=== PATIENT | female | born 1970 | race Caucasian/White ===

== ENCOUNTER 2017-04-15 10:14 | Emergency (ER) | payer BC, OTHER ==
[2017-04-15 10:22] VITALS: BP 135/81
--- NOTE | 2017-04-15 10:37 | UC ---
Respiratory Complaint HPI - HPI Summary HPI Summary: 46 year old female with sinus pressure for 2 weeks. Over the past 3-4 days developed worsened cough, sore throat and fatigue. No SOB. No CP. - History of Current Complaint Chief Complaint: UCRespiratory Stated Complaint: COUGH Time Seen by Provider: 04/15/17 10:27 Hx Obtained From: Patient, Family/General Supervisor Hx Last Menstrual Period: UTERINE ABLATION 2012 Onset/Duration: Gradual Onset Timing: Constant Severity Initially: Mild Severity Currently: Moderate Character: Cough: Nonproductive Associated Signs And Symptoms: Positive: Nasal Congestion, Sinus Discomfort - Allergies/Home Medications Allergies/Adverse Reactions: Allergies Allergy/AdvReac Type Severity Reaction Status Date / Time Prednisone Allergy See Comment Verified 04/15/17 10:18 PMH/Surg Hx/FS Hx/Imm Hx Previously Healthy: Yes Psychological History: Anxiety, Depression - Surgical History Surgical History: Yes Surgery Procedure, Year, and Place: ablasion, hernia, TUBAL LIGATION - Family History Known Family History: Positive: Hypertension, Diabetes - Social History Occupation: Employed Full-time Alcohol Use: Rare Substance Use Type: None Smoking Status (MU): Never Smoked Tobacco - Immunization History Most Recent Influenza Vaccination: JAN 1015 Review of Systems Constitutional: Fever, Chills, Fatigue ENT: Sore Throat, Ear Ache, Nasal Discharge, Sinus Congestion, Sinus Pain/ Tenderness Respiratory: Cough Is Patient Immunocompromised?: No All Other Systems Reviewed And Are Negative: Yes Physical Exam Triage Information Reviewed: Yes Appearance: Well-Appearing, No Pain Distress, Well-Nourished Vital Signs: Initial Vital Signs Temp 98.9 F 04/15/17 10:20 Pulse 97 04/15/17 10:20 Resp 14 04/15/17 10:20 BP 135/81 04/15/17 10:20 Pulse Ox 98 04/15/17 10:20 Vital Signs Reviewed: Yes Eye Exam: Normal ENT Exam: Normal ENT: Positive: Sinus tenderness Dental Exam: Normal Neck exam: Normal Neck: Positive: 1 Respiratory Exam: Normal Cardiovascular Exam: Normal Musculoskeletal Exam: Normal Neurological Exam: Normal Psychological Exam: Normal Skin Exam: Normal UC Diagnostic Evaluation - Laboratory O2 Sat by Pulse Oximetry: 98 Respiratory Course/Dx - Differential Dx/Diagnosis Differential Diagnosis/HQI/PQRI: Bronchitis, Influenza, Lower Resp Infection, Sinusitis Provider Diagnoses: Sinusitis Discharge - Discharge Plan Condition: Good Disposition: HOME Prescriptions: Amoxicillin/Clavulanate TAB* [Augmentin TAB 875*] 875 mg PO BID #20 tab Benzonatate [Benzonatate 200 MG] 200 mg PO TID #20 cap Fluconazole 150 MG (NF) [Diflucan 150 mg (NF)] 150 mg PO ONCE #1 tab Patient Education Materials: Sinusitis (ED) Referrals: Kayla Dimas MD [Primary Care Provider] - 3 Days Additional Instructions: You had a negative flu and strep test today
== END 2017-04-15 11:00 | disposition home or self-care (01) ==
LOC: UCEAST 10:14
DX: J32.9 Chronic sinusitis, unspecified (principal); Z88.8 Allergy status to other drugs, medicaments and biological substances
CPT/HCPCS: 87502; 87651; 99211; G0463

== ENCOUNTER 2017-04-27 10:12 | Emergency (ER) | payer BC ==
--- OUTSIDE RECORDS SUMMARY | 2017-04-27 10:25 | XMS REPORT ---
:1970 External Reference #:[id number] Author Organization [facility] Address [address] [address] Phone [phone] Care Team Providers Name Role Phone Kayla Dimas MD Primary Care Physician Unavailable Payers Type Date Identification Numbers Payment Provider Subscriber Commercial Expires: Policy Number: Lifetime Benefit Ester Ozuna 2016 [id number] Solution PayID: [id number] [address] [place] [address] Medigap Part B Expires: 2016 Policy Number: [facility] Aniam[facility] [id number] Group Number: [id number] [address] PayID: [id number] [place] [address] Medigap Part B Effective: 2016 Policy Number: [facility] Ester Ozuna [id number] PayID: [id number] [address] [place] [address] Problems Date Description Provider Status Onset: 07/05/2013 Dizziness and giddiness Carito Graham M.D. 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[employer] Cigarette Use Never Smoked Cigarettes Cigars Never Smoked Cigars Pipe Never Smoked A Pipe Smokeless Tobacco Never Used Smokeless Tobacco ETOH Use Rarely consumes alcohol Smoking Patient has never smoked Recreational Drug Use Never Used Drugs Daily Caffeine Does Not Consume Caffeine Daily Caffeine Consumes on average 2 cups of regular coffee per day Exercise Type/Frequency Does not exercise Allergies, Adverse Reactions, Alerts Date Description Reaction Status Severity Comments 04/24/2014 Environmental active 10/14/2016 Prednisone active rash 09/15/2009 NKDA inactive Medications Medication Date Status Form Strength Qnty SIG Indications Ordering Provider Weekly Allergy 04/23 Active on hold Unknown Shots Qmonth Clonazepam 09/05 Active Tablets 1mg 45tab 1 tab by Kelly s mouth MD Britni every night, 1/2 tab once as needed during day Fluoxetine HCL Active Capsules 20mg 30cap 1 po qd s Montelukast Active Tablets 10mg 1 by mouth Unknown every day Xyzal Active Tablets 5mg 1 by mouth Unknown every day Spironolactone Active Tablets 100mg one tab by Unknown mouth daily Hydrochlorothiazi 04/15 Hx Tablets 25mg 60tab 1/2 - 1 H81.93 Carito Amanda s tab by Hannah Graham.Boogie 10/11 2-3x/ as directed. Vitamin D 04/23 Hx Capsules 1000Unit 60cap 1 po qd s (winter - 10/10 only) Spironolactone 04/23 Hx Tablets 150mg 60tab take 1 s tablet by - mouth once 10/11 a day /2016 Qnasl 04/23 Hx Aerosol 80mcg/Act 8.700 2 gm inhalation - s in each 04/14 nostril once daily Clonazepam Odt 06/21 Hx Tablets 0.5mg 180ta 1-2 tabs Carito Amanda Dispers bs by mouth Gladys, - 2-3 x per M.DRaul 09/05 day directed Valium 02/16 Hx Tablets 5mg 60tab 1 po bid Jeff Hannah Loco M.D. 06/21 Diuretic Does 02/16 Hx Jeff Not Know Name Hannah Mccartney M.D. 06/21 Medrol Dosepak 01/26 Hx Tablets 4mg 1pack take as Jeff Hannah Vidal for onset M.DRaul 02/16 of vertigo Rhinocort Aqua 00/00 Hx Unknown /0000 - 06/21 Nisa 00/ Hx Unknown /0000 - 06/21 Multivitamins 00/ Hx Unknown /0000 - 06/21 Amoxicillin 00 Hx Capsules 500mg 40cap 2 bid for Unknown /0000 s 10 days - 02/16 Scopolamine Hx 1.5mg 10uni topical Unknown Transdermal /0000 Patch ts q3d prn - 06/21 Nasonex Hx Suspension 50mcg/Act 1unit 2 sprays Unknown /0000 s to each - nostril 01/01 once daily /2013 Zolpidem Tartrate Hx Tablets 5mg 30tab 1 tab po Unknown /0000 s at bedtime - 07/05 Cephalexin Hx Capsules 250mg 21cap 1 tab po Unknown /0000 s daily - 09/05 Keflex Hx Capsules 250mg 30cap 1 tab po Unknown /0000 s every 12 - hours 01/01 Ferrous Sulfate Hx Tablets 325(65Fe) 30tab 1 by mouth Unknown /0000 mg s bid - 09/17 Levocetirizine Hx Tablets 5mg 90tab 1 by mouth Unknown Dihydrochloride /0000 s every day - 10/10 Spironolactone 00 Hx Tablets 100mg 120ta 1 by mouth Unknown /0000 bs every day - 04/23 Flonase Allergy Hx Suspension 50mcg/Act spray 2 Unknown Relief /0000 spray in - each 10/11tr daily Vital Signs Date Vital Result Comment 04/17/2017 Height 67 inches 5'7" Weight 194.38 lb Heart Rate 83 /min BP Systolic Sitting 120 mmHg BP Diastolic Sitting 76 mmHg Respiratory Rate 18 /min O2 % BldC Oximetry 97 % BMI (Body Mass Index) 30.4 kg/m2 10/14/2016 Height 67 inches 5'7" Weight 185.00 lb Heart Rate 75 /min BP Systolic 116 mmHg BP Diastolic 66 mmHg Respiratory Rate 16 /min O2 % BldC Oximetry 98 % Ra BMI (Body Mass Index) 29.0 kg/m2 04/15/2016 Heart Rate 62 /min BP Systolic Sitting 124 mmHg BP Diastolic Sitting 98 mmHg Respiratory Rate 20 /min Pain Level 0 O2 % BldC Oximetry 98 % 10/09/2015 Height 67 inches 5'7" Weight 170.00 lb Heart Rate 64 /min BP Systolic Sitting 112 mmHg BP Diastolic Sitting 80 mmHg Respiratory Rate 14 /min BMI (Body Mass Index) 26.6 kg/m2 04/16/2015 Height 67 inches 5'7" Weight 180.00 lb Heart Rate 56 /min BP Systolic Sitting 120 mmHg BP Diastolic Sitting 86 mmHg Respiratory Rate 14 /min BMI (Body Mass Index) 28.2 kg/m2 09/18/2014 Height 67 inches 5'7" Weight 172.00 lb Heart Rate 72 /min BP Systolic Sitting 136 mmHg BP Diastolic Sitting 76 mmHg Respiratory Rate 16 /min BMI (Body Mass Index) 26.9 kg/m2 07/31/2014 Height 67 inches 5'7" Weight 170.00 lb Heart Rate 82 /min BP Systolic Sitting 120 mmHg BP Diastolic Sitting 60 mmHg O2 % BldC Oximetry 98 % BMI (Body Mass Index) 26.6 kg/m2 04/24/2014 Height 67 inches 5'7" Weight 170.00 lb Heart Rate 72 /min BP Systolic Sitting 132 mmHg BP Diastolic Sitting 64 mmHg Respiratory Rate 18 /min Body Temperature 97.7 F O2 % BldC Oximetry 98 % BMI (Body Mass Index) 26.6 kg/m2 Neck Circumference in inches 13.75 01/07/2014 Height 67 inches 5'7" Weight 172.00 lb Heart Rate 72 /min BP Systolic Sitting 114 mmHg BP Diastolic Sitting 80 mmHg Respiratory Rate 12 /min BMI (Body Mass Index) 26.9 kg/m2 07/05/2013 Height 67 inches 5'7" Weight 160.00 lb Heart Rate 67 /min BP Systolic Sitting 120 mmHg BP Diastolic Sitting 60 mmHg Respiratory Rate 16 /min BMI (Body Mass Index) 25.1 kg/m2 09/05/2012 Weight 165.00 lb Heart Rate 68 /min BP Systolic 118 mmHg BP Diastolic 70 mmHg Respiratory Rate 12 /min 06/21/2012 Heart Rate 75 /min BP Systolic Sitting 122 mmHg BP Diastolic Sitting 78 mmHg Respiratory Rate 16 /min 09/15/2009 Heart Rate 78 /min BP Systolic Sitting 122 mmHg BP Diastolic Sitting 76 mmHg Results Description No Information Procedures Date CPT Code Description Status 07/08/2014 02381 Polysomnography Sleep Staging 4+ Parameters Completed 04/24/2012 22710 Nerve Conduction 07-08 Studies Completed Encounters Type Date Location Provider CPT E/M Dx Office Visit 04/17/2017 11:15a Moses/Jacqui Graham, [id number] R42 [facility]rolog[facility] Serv Of Cell Inspector M.D. R20.2 Office Visit 10/14/2016 11:45a Mare Graham, 88379 H81.93 Neurologic Serv Of Cell Inspector M.D. H90.5 Office Visit 04/15/2016 10:45a Moses/Jacqui Graham, 42485 H81.93 Neurologic Serv Of Cell Inspector M.D. Office Visit 10/09/2015 10:00a Moses/Jacqui Graham, 01657 H81.93 Neurologic Serv Of Cell Inspector M.D. Office Visit 04/16/2015 1:00p Jacqui Graham, 01300 H81.90 Services Of Cell Inspector M.D. H81.93 Office Visit 09/18/2014 11:30a Jacqui Graham, 66243 780.4 Services Of Cell Inspector M.D. Office Visit 07/31/2014 3:30p [place] [address] 780.57 Services Of Cell Inspector Office Visit 04/24/2014 11:00a [place] [address] 780.59 Services Of Cell Inspector Office Visit 01/07/2014 11:45a [facility] Carito Graham, 74731 389.10 Services Of Cell Inspector M.D. 386.9 Office Visit 07/05/2013 8:45a Jacqui Graham, 66225 780.4 Services Of Cell Inspector M.D. Office Visit 01/04/2013 12:00p Jacqui Graham, 40998 386.8 Services Of Cell Inspector M.D. 782.0 Office Visit 09/05/2012 12:00p Jacqui Graham, 72008 782.0 Services Of Cell Inspector M.D. 780.4 Office Visit 06/21/2012 11:15a Jacqui Graham, 82655 782.0 Services Of Cell Inspector M.D. 780.4 Office Visit 04/24/2012 2:30p Jacqui Graham 33146 782.0 Services Of [facility] Marie.Boogie Office Visit 02/15/2012 10:00a [facility] Carito Graham, 35412 780.4 Services [facility] Danelle 782.0 Office Visit 02/16/2010 3:15p E[facility] Services Of Jeff Mccartney M.D. 85243 386.9 [facility] [place] 389.10 Office Visit 01/26/2010 2:30p [facility] Of Jeff Mccartney M.D. 58861 386.9 [facility] [place] Office Visit 01/18/2010 10:45a ENT Services Of Leonidpravin Garner, 22517 386.[address] [facility].Boogie Office Visit 09/15/2009 3:00p [facility] Of Jeff Mccartney M.D. 82461 386.11 [facility] [place] Plan of Care Future Appointment(s):10/16/2017 11:15 am - Carito Graham M.D. at [place]/ [facility]04/17/2017 - Carito Graham M.D.R42 Dizziness and giddinessRecommendations:stay on klonopin 1 mg as you are doing. call if increased symptoms/signs.R20.2 Paresthesia of skinFollow up:6 MONTHSRecommendations:try neck/thoracic outlet exercises. call if increased symptoms....? repeat NCVs.
[2017-04-27 11:44] VITALS: BP 121/80
[2017-04-27] MEDS ORDERED: Albuterol/Ipratropium NEB.SOL* Albuterol 2.5 MG/Ipratropium 0.5 MG 3 ML INH ONE (12:07)
--- NOTE | 2017-04-27 12:08 | UC ---
FLU HPI - HPI Summary HPI Summary: Pt presents with a cough, body aches, and fever. She tells me that she and her were diagnosed with the flu 4 days ago by her PCP. Since that time she feels that she is getting worse - worsening body aches and increasing cough that is not productive, but her chest feels congested. She is still having a fever, but taking tylenol and ibuprofen is helping. She is currently taking Tamiflu and is on day #4. Does feel SOB at times, especially when active or with excessive talking. Denies chest pain, abdominal pain, n/v/d/c, or dysuria. - History of Current Complaint Chief Complaint: UCRespiratory Stated Complaint: COUGH, SORE THROAT Time Seen by Provider: 04/27/17 12:02 Hx Obtained From: Patient Hx Last Menstrual Period: none- tubes tied Onset/Duration: Gradual Onset Severity Currently: Moderate Severity Initially: Moderate Pain Intensity: 7 Pain Scale Used: 0-10 Numeric Associated Signs & Symptoms: Positive: Fever - Allergy/Home Medications Allergies/Adverse Reactions: Allergies Allergy/AdvReac Type Severity Reaction Status Date / Time Prednisone Allergy See Comment Verified 04/27/17 11:38 Home Medications: Home Medications Oseltamivir Phosphate [Tamiflu] 75 mg PO BID 04/27/17 [History Confirmed ] PMH/Surg Hx/FS Hx/Imm Hx Psychological History: Anxiety, Depression - Surgical History Surgical History: Yes Surgery Procedure, Year, and Place: ablasion, hernia, TUBAL LIGATION - Family History Known Family History: Positive: Hypertension, Diabetes - Social History Occupation: Employed Full-time Lives: With Family Alcohol Use: Rare Substance Use Type: None Smoking Status (MU): Never Smoked Tobacco - Immunization History Most Recent Influenza Vaccination: JAN 1015 Review of Systems Constitutional: Fever, Fatigue, Other - Body aches Skin: Negative Eyes: Negative ENT: Nasal Discharge, Sinus Congestion, Sinus Pain/Tenderness Respiratory: Shortness Of Breath, Cough Cardiovascular: Negative Gastrointestinal: Negative Neurovascular: Negative Neurological: Negative Psychological: Negative All Other Systems Reviewed And Are Negative: Yes Physical Exam Triage Information Reviewed: Yes Appearance: No Pain Distress, Well-Nourished, Ill-Appearing Vital Signs: Initial Vital Signs Temp 98.9 F 04/27/17 11:39 Pulse 79 04/27/17 11:39 Resp 18 04/27/17 11:39 BP 121/80 04/27/17 11:39 Pulse Ox 97 04/27/17 11:39 Vital Signs Reviewed: Yes Eyes: Positive: Conjunctiva Clear. Negative: Conjunctiva Inflamed, Discharge ENT: Positive: Hearing grossly normal, Pharynx normal, TMs normal, Uvula midline. Negative: Pharyngeal erythema, Nasal congestion, Nasal drainage, TM bulging, TM dull, TM red, Tonsillar swelling, Tonsillar exudate, Hoarse voice, Sinus tenderness Neck: Positive: Supple, Other: - Anterior lymphadenopathy with mild TTP.. Negative: Nuchal Rigidity Respiratory: Positive: Chest non-tender, No respiratory distress, No accessory muscle use, Decreased breath sounds - Throughout, Wheezing - Moderate throughout Cardiovascular: Positive: RRR, No Murmur, Pulses Normal Abdomen Description: Positive: Nontender, No Organomegaly, Soft. Negative: CVA Tenderness (R), CVA Tenderness (L), Distended, Guarding Bowel Sounds: Positive: Present Neurological: Positive: Alert, Fatigued Psychological: Positive: Age Appropriate Behavior Skin: Negative: rashes Re-Evaluation - Re-Evaluation First Eval Re-Evaluation Time: 13:08 Change: Improved Comment: Scant wheezing. Much improved overall. Pt subjectively feels that it is easier to breathe. Flu Course/Dx - Course Course Of Treatment: CXR: IMPRESSION: SMALL RIGHT PLEURAL EFFUSION. Wheezing much improved after duoneb. I will treat her pleural effusion as having a bacterial cause such as PNA and treat with Levaquin. F/u with PCP early next week - Differential Dx/Diagnosis Provider Diagnoses: Small right pleural effusion. Influenza. Cough. Body aches Discharge - Discharge Plan Condition: Stable Disposition: HOME Prescriptions: Levofloxacin TAB* [Levaquin TAB*] 750 mg PO DAILY #5 tab Patient Education Materials: Pleural Effusion (ED) Referrals: Kayla Dimas MD [Primary Care Provider] - Additional Instructions: If you develop a fever, shortness of breath, chest pain, new or worsening symptoms - please call your PCP or go to the ED. 1) Please schedule a follow up appointment with your PCP for Monday or Monday next week for recheck of your SMALL RIGHT PLEURAL EFFUSION.
--- NOTE | 2017-04-27 12:43 | RAD ---
INDICATION: Cough. COMPARISON: There are no prior studies available for comparison. TECHNIQUE: Dual-energy PA and lateral views of the chest were obtained. FINDINGS: The heart is within normal limits in size. Mediastinal and hilar contours appear within normal limits. The lungs are hyperinflated and clear. There is a small right pleural effusion. IMPRESSION: SMALL RIGHT PLEURAL EFFUSION.
== END 2017-04-27 13:20 | disposition home or self-care (01) ==
LOC: UCEAST 10:12
DX: J11.1 Influenza due to unidentified influenza virus with other respiratory manifestations (principal); J91.8 Pleural effusion in other conditions classified elsewhere; Z88.8 Allergy status to other drugs, medicaments and biological substances
CPT/HCPCS: 71046; 99212; A9270-GY; G0463

== ENCOUNTER 2018-05-17 07:39 | Emergency (ER) | payer BC ==
[2018-05-17 07:58] VITALS: BP 130/75
[2018-05-17] MEDS ORDERED: Ondansetron ODT TAB* 4 MG PO ONE (08:09)
--- NOTE | 2018-05-17 08:21 | UC ---
FLU HPI - HPI Summary HPI Summary: 47-year-old woman comes in with 4 days of fever chills body aches. Taking over- the-counter medicines which to help with symptoms some. Is also slightly nauseous. She has a sore throat it's worse with a cough. States the sore throat is mild otherwise she is not worried about strep throat. No chest congestion or shortness of breath. - History of Current Complaint Chief Complaint: UCGeneralIllness Stated Complaint: FEVER COUGH SORE THROAT NAUSEA Time Seen by Provider: 05/17/18 08:02 Hx Last Menstrual Period: none- tubes tied Pain Intensity: 7 - Allergy/Home Medications Allergies/Adverse Reactions: Allergies Allergy/AdvReac Type Severity Reaction Status Date / Time prednisone Allergy See Comment Verified 05/17/18 07:48 Home Medications: Home Medications Ibuprofen TAB* [Motrin TAB* 400 MG] 400 mg PO ONCE 05/17/18 [History Confirmed 05/17/18] Spironolactone TAB* [Aldactone TAB*] 100 mg PO DAILY 05/17/18 [History Confirmed 05/17/18] PMH/Surg Hx/FS Hx/Imm Hx Previously Healthy: Yes Cardiovascular History: Hypertension - Surgical History Surgical History: Yes Surgery Procedure, Year, and Place: ablasion, umbilical hernia, TUBAL LIGATION, hysterectomy 2017 - Family History Known Family History: Positive: Hypertension, Diabetes - Social History Alcohol Use: Occasionally Substance Use Type: None Smoking Status (MU): Never Smoked Tobacco - Immunization History Most Recent Influenza Vaccination: JAN 1015 Review of Systems All Other Systems Reviewed And Are Negative: Yes Constitutional: Positive: Fever, Chills Skin: Positive: Negative Eyes: Positive: Negative ENT: Positive: Sore Throat, Nasal Discharge, Sinus Congestion Respiratory: Positive: Cough Cardiovascular: Positive: Negative Gastrointestinal: Positive: Nausea Motor: Positive: Negative Neurovascular: Positive: Negative Musculoskeletal: Positive: Myalgia Neurological: Positive: Negative Psychological: Positive: Negative Is Patient Immunocompromised?: No Physical Exam Triage Information Reviewed: Yes Appearance: No Pain Distress, Well-Nourished, Ill-Appearing - mild Vital Signs: Initial Vital Signs Temp 97.4 F 05/17/18 07:52 Pulse 110 05/17/18 07:52 Resp 20 05/17/18 07:52 BP 130/75 05/17/18 07:52 Pulse Ox 95 05/17/18 07:52 Vital Signs Reviewed: Yes Eye Exam: Normal Eyes: Positive: Conjunctiva Clear ENT: Positive: Pharyngeal erythema, Nasal congestion, Nasal drainage, TMs normal Neck exam: Normal Neck: Positive: Supple Respiratory: Positive: Lungs clear, Normal breath sounds, No respiratory distress Cardiovascular: Positive: Tachycardia Musculoskeletal Exam: Normal Musculoskeletal: Positive: Strength Intact, ROM Intact Neurological Exam: Normal Neurological: Positive: Alert, Muscle Tone Normal Psychological Exam: Normal Psychological: Positive: Normal Response To Family, Age Appropriate Behavior Flu Course/Dx - Course Course Of Treatment: We discussed treatment of influenza we discussed treatment of influenza at this time the patient prefers to be on Tamiflu. - Differential Dx/Diagnosis Provider Diagnosis: Influenza Discharge - Sign-Out/Discharge Documenting (check all that apply): Patient Departure All imaging exams completed and their final reports reviewed: No Studies - Discharge Plan Condition: Stable Disposition: HOME Prescriptions: Benzonatate CAP* [Tessalon 100 MG CAP*] 100 mg PO TID PRN #20 cap PRN Reason: Cough Ondansetron ODT TAB* [Zofran 4 MG Odt TAB*] 4 mg PO Q6H PRN #15 tab.odt PRN Reason: Nausea Oseltamivir CAP* [Tamiflu CAP*] 75 mg PO BID #10 cap Patient Education Materials: Influenza (ED) Referrals: Kayla Dimas MD [Primary Care Provider] - Additional Instructions: FOLLOW UP WITH YOUR DOCTOR IF NOT COMPLETELY IMPROVED. GET RECHECKED FOR ANY WORSENING OF YOUR CONDITION OR QUESTIONS OR CONCERNS. - Billing Disposition and Condition Condition: STABLE Disposition: Home
[2018-05-17 08:29] LABS: Influenza A Molecular POSITIVE (Negative)
== END 2018-05-17 09:48 | disposition home or self-care (01) ==
LOC: UCEAST 07:39
DX: J11.1 Influenza due to unidentified influenza virus with other respiratory manifestations (principal); I10 Essential (primary) hypertension; Z88.8 Allergy status to other drugs, medicaments and biological substances; Z79.899 Other long term (current) drug therapy
CPT/HCPCS: 99212; A9270-GY; G0463

== ENCOUNTER 2018-07-08 07:07 | Emergency (ER) | payer BC ==
[2018-07-08 07:26] VITALS: BP 124/82
--- NOTE | 2018-07-08 07:37 | UC ---
Throat Pain/Nasal [place] HPI - HPI Summary HPI Summary: [address] AND FATIGUE. HAS SUBJECTIVE FEVER, PND AND MILD COUGH. YESTERDAY RIGHT EAR STARTED HURTING. - History of Current Complaint Stated Complaint: SORE THROAT Time Seen by Provider: 07/08/18 07:20 Hx Obtained From: Patient Hx Last Menstrual Period: none- tubes tied Onset/Duration: Gradual Onset, Lasting Days, Still Present Severity: Moderate Pain Intensity: 5 Pain Scale Used: 0-10 Numeric Cough: Nonproductive Associated Signs & Symptoms: Positive: Fever. Negative: Hoarseness, Nasal Discharge - Allergies/Home Medications Allergies/Adverse Reactions: Allergies Allergy/AdvReac Type Severity Reaction Status Date / Time prednisone Allergy See Comment Verified 07/08/18 07:25 PMH/Surg Hx/FS Hx/Imm Hx - Additional Past Medical History Additional PMH: ALLERGIES - Surgical History Surgical History: Yes Surgery Procedure, Year, and Place: ablasion, umbilical hernia, TUBAL LIGATION, hysterectomy 2017 - Family History Known Family History: Positive: Hypertension, Diabetes - Social History Alcohol Use: Rare Substance Use Type: None Smoking Status (MU): Never Smoked Tobacco - Immunization History Most Recent Influenza Vaccination: JAN 1015 Review of Systems All Other Systems Reviewed And Are Negative: Yes Constitutional: Positive: Fever, Fatigue ENT: Positive: Sore Throat, Ear Ache Respiratory: Positive: Cough Cardiovascular: Positive: Negative Gastrointestinal: Positive: Negative Physical Exam Triage Information Reviewed: Yes Appearance: Well-Appearing, No Pain Distress, Well-Nourished Vital Signs: Initial Vital Signs Temp 99.0 F 07/08/18 07:23 Pulse 89 07/08/18 07:23 Resp 16 07/08/18 07:23 BP 124/82 07/08/18 07:23 Pulse Ox 98 07/08/18 07:23 Laboratory Tests 07/08/18 07:33 Group A Strep Rapid Negative Vital Signs Reviewed: Yes Eyes: Positive: Conjunctiva Clear ENT: Positive: Hearing grossly normal, Pharynx normal, TMs normal Neck: Positive: Supple, Tenderness @ - SPFL CERVICAL LAD, Enlarged Nodes @ - SPFL CERVICAL LAD Respiratory Exam: Normal Cardiovascular Exam: Normal Abdomen Description: Positive: Soft Musculoskeletal: Positive: No Edema Neurological: Positive: Alert Psychological: Positive: Age Appropriate Behavior Skin: Negative: Rashes Throat Pain/Nasal Course/Dx - Course Course Of Treatment: STREP TEST NEGATIVE. DISCUSSED SHORT COURSE OF PREDNISONE TO HELP WITH INFLAMMATION AND DISCOMFORT BUT PATIENT DECLINES. SHE IS NOT INTERESTED IN ABX WITH NO DEFINITE INDICATION WHICH I AGREE WITH. SHE WILL STAY WELL-HYDRATED AND TAKE IBUPROFEN NEEDED FOR DISCOMFORT AND FOLLOW UP IF SHE IS NOT IMPROVING OVER THE NEXT COUPLE OF WEEKS. - Differential Dx/Diagnosis Provider Diagnosis: Acute pharyngitis Discharge - Sign-Out/Discharge Documenting (check all that apply): Patient Departure All imaging exams completed and their final reports reviewed: No Studies - Discharge Plan Condition: Stable Disposition: HOME Patient Education Materials: Pharyngitis (ED) Referrals: Kayla Dimas MD [Primary Care Provider] - If Needed Additional Instructions: STREP TEST NEGATIVE. YOUR SYMPTOMS ARE LIKELY VIRALLY MEDIATED AND SHOULD RESOLVE ON THEIR OWN WITH TIME. NO INDICATION FOR ANTIBIOTICS AT PRESENT. REST, HYDRATE, OTC MEDS NEEDED. SEEK FOLLOW-UP IF YOU ARE NOT IMPROVING OVER THE NEXT 1-2 WEEKS. - Billing Disposition and Condition Condition: STABLE Disposition: Home
== END 2018-07-08 08:04 | disposition home or self-care (01) ==
LOC: UCEAST 07:07
DX: J02.9 Acute pharyngitis, unspecified (principal); H92.09 Otalgia, unspecified ear; Z88.8 Allergy status to other drugs, medicaments and biological substances
CPT/HCPCS: 87651; 99211; G0463